=== PATIENT | male | born 1945 ===

== ENCOUNTER → 2018-12-17 | Outpatient (CLI) | payer MEDICARE ==
--- NOTE | 2018-12-17 16:06 | CTL ---
EXAMINATION TYPE: CT Low Dose Lung DATE OF EXAM ORDERED: 12/17/2018 HISTORY: 73-year-old male Personal history of tobacco use. Lung cancer screening CT DLP: [address] CTDI: 1.99 mGy Automated exposure control for dose reduction was used. SCREENING VISIT: Baseline COMPARISON: None TECHNIQUE: Low dose computed tomography scan was performed through the chest at 1 mm thick sections a nd reconstructed images coronal/sagittal plane. Additional coronal MIP reconstruction performed. CT DIAGNOSTIC QUALITY: Satisfactory FINDINGS: Heart normal size without pericardial effusion. Extensive coronary vessel calcifications are present. Ectatic ascending aorta 3.7 cm. Moderate atherosclerotic calcifications throughout the aorta. No thoracic lymphadenopathy by CT size criteria. 5 mm subpleural pulmonary nodule posterior right upper lobe, axial image 61. Probable scarring given the adjacent curvilinear density. 4 mm anterior left upper lobe pulmonary nodule axial image 103. Tiny calcified granuloma left lower lobe, axial image 185. Calcific granuloma left upper lobe, axial image 107. Moderate diffuse bronchial wall thickening. Visualized upper abdomen shows what appears to be 4.2 cm caudate lobe cyst. Bones: Moderate distention plate degenerative change mid to lower thoracic spine. IMPRESSION: 1. LungRADS 3 - probably benign; subpleural nodularity right upper lobe, possible pleural parenchymal scarring given adjacent curvilinear density. 2. Prior granulomatous disease and a couple scattered 5 mm and smaller pulmonary nodules at baseline. 3. COPD with a prominent component of chronic bronchitis versus superimposed acute bronchitis. 4. CAD. RECOMMENDATION: 1. Six-month follow-up low-dose CT chest. 2. Smoking cessation. FOLLOW UP CT CHEST RECOMMENDATION: [address] LUNG RAD: Lung-Rad 3 Probably Benign
== END | disposition home or self-care (01) ==
LOC: RADCTMAIN 07:55
PROVIDERS: ATTEND Internal Medicine
DX: Z12.2 Encounter for screening for malignant neoplasm of respiratory organs (principal); R91.8 Other nonspecific abnormal finding of lung field; J44.9 Chronic obstructive pulmonary disease, unspecified; I25.10 Atherosclerotic heart disease of native coronary artery without angina pectoris; F17.200 Nicotine dependence, unspecified, uncomplicated

== ENCOUNTER → 2019-01-07 | Outpatient (CLI) | payer MEDICARE ==
--- NOTE | 2019-01-07 11:25 | ECHOS ---
STRESS ECHOCARDIOGRAM INDICATIONS: Atherosclerotic calcification. MEDICATIONS: Rosuvastatin. BASELINE HEART RATE: 58 BASELINE BLOOD PRESSURE: 129/49 MAXIMUM HEART RATE: 123. MAXIMUM BLOOD PRESSURE: 213/92 85% MPHR: 125 100% MPHR: 147 METS: 6.8 MAXIMUM STAGE REACHED: 3 TOTAL EXERCISE TIME: 5:15 CLINICAL INFORMATION: Atherosclerotic calcifications noted on CT scan. Evaluate for coronary artery disease, longstanding history of smoking and COPD. Baseline heart rate 58 beats per minute. Baseline blood pressure 129/49 mmHg. Patient exercised on a Finn protocol for barely 5 minutes 15 seconds. He was extremely short of breath with exercise. There was a hypertensive response to exercise 213/92 mmHg. His baseline 12-lead ECG showed normal sinus rhythm and normal cardiac intervals without any PVCs. However, with exercise. He had very frequent PVCs over left bundle branch block morphology with upright QRS in the inferior leads consistent with the outflow tract PVCs. With exercise, he had ventricular bigeminy but no nonsustained ventricular tachycardia. However, there was no ECG evidence for ischemia. No sustained or nonsustained arrhythmias were noted. Only ventricular bigeminy throughout the study. The baseline 2D echo images showed normal LV size and systolic function without segmental wall motion abnormalities. At peak exercise, there was hypokinesis of the inferior wall that improved with recovery. IMPRESSION: 1. Hypertensive response to exercise. 2. Shortness of breath with exertion. 3. Hypokinesis of the inferior wall at peak exercise that improved with recovery. Outflow tract premature ventricular contractions are likely RVOT premature ventricular contractions that could be explained by ischemia in the inferior wall territory (conus branch). MMODL / IJN: [id number] /
== END | disposition home or self-care (01) ==
LOC: RADNMMAIN 09:37
PROVIDERS: ATTEND Internal Medicine
DX: I25.10 Atherosclerotic heart disease of native coronary artery without angina pectoris (principal); I70.0 Atherosclerosis of aorta
CPT/HCPCS: 93351

== ENCOUNTER → 2019-12-12 | Outpatient (CLI) | payer MEDICARE ==
--- NOTE | 2019-12-12 07:49 | US ---
EXAMINATION TYPE: US duplex aorta DATE OF EXAM: 12/12/2019 COMPARISON: NONE CLINICAL HISTORY: Z13.6 Encounter for screening for cardiovascular d; smoker; COPD EXAM MEASUREMENTS: Abdominal Aorta: Proximal: 2.7cm Transverse Mid: 2.1cm Longitudinal Distal: 2.2cm Transverse Bifurcation: Right CARMEN = 1.5cm Transverse; Left CARMEN = 1.6cm Transverse. Irregular intimal wall thickening noted throughout aorta and into common iliac arteries. Color flow p atency and Pulsed Doppler arterial waveform are documented. Grayscale, color Doppler, spectral Doppler imaging performed. Atheromatous changes are present. IMPRESSION: No evident aortic aneurysm.
== END | disposition home or self-care (01) ==
LOC: RADUSWWP 07:09
PROVIDERS: ATTEND Internal Medicine
DX: Z13.6 Encounter for screening for cardiovascular disorders (principal)
CPT/HCPCS: 93979

== ENCOUNTER → 2019-12-18 | Outpatient (CLI) | payer MEDICARE ==
--- NOTE | 2019-12-18 08:05 | CTL ---
EXAMINATION TYPE: CT Low Dose Lung DATE OF EXAM ORDERED: 12/18/2019 HISTORY: . Lung cancer screening CT DLP: 94.[address] CTDI: 2.7 mGy Automated exposure control for dose reduction was used. SCREENING VISIT: COMPARISON: 12/17/2018 TECHNIQUE: Low dose computed tomography scan was performed through the chest at 1 mm thick sections a nd reconstructed images in the coronal plane at [address] DIAGNOSTIC QUALITY: Satisfactory FINDINGS: LUNG NODULES: 1. Stable 5 mm subpleural pulmonary nodule right upper lobe posteriorly. 2. Stable calcified granuloma left lower lobe. 3. Stable calcified granuloma left upper lobe. 4. Stable 4 mm nodule anterior segment left upper lobe. 5. Stable 2 mm nodule right middle lobe axial image 94 6. Calcified 2 mm nodule superior segment right upper lobe LUNGS: There are diffuse emphysematous changes with peribronchial wall thickening which is stable. No consol idative pneumonia, pleural effusion, or pneumothorax. Areas of subsegmental consolidation most typica l scar or atelectasis PLEURAL SPACE: Effusion: None Calcification: None Thickening: Mild Pneumothorax: None HEART: Heart size at the upper limits of normal. No pericardial effusion. Dense three-vessel coronary artery disease. Atherosclerotic change aorta. OTHER FINDINGS: Suggestion of a granuloma within the spleen. Within the liver there is a hypodense lesion caudate seg ment measuring 3 cm and 14 Hounsfield units suggestive of a cyst retrospectively stable from prior ex am. IMPRESSION: Lung rad's 2 1. Stable 5 mm or less multiple pulmonary nodules. 2. Correlate for chronic granulomatous disease. 3. COPD with findings suggestive of chronic bronchitis FOLLOW UP CT CHEST RECOMMENDATION: Annual screening with 12 month follow-up CT CT LUNG RAD: 2
== END | disposition home or self-care (01) ==
LOC: RADCTMAIN 07:01
PROVIDERS: ATTEND Internal Medicine
DX: J44.9 Chronic obstructive pulmonary disease, unspecified (principal); F17.210 Nicotine dependence, cigarettes, uncomplicated

== ENCOUNTER → 2024-07-26 | Outpatient (CLI) | payer MEDICARE ==
--- NOTE | 2024-07-26 20:06 | PE ---
EXAMINATION TYPE: PET CT fusion skull to thigh DATE OF EXAM: 07/26/2024 CLINICAL INDICATION:Male, 79 years old with history of R91.1 SPN; TECHNIQUE: Following the intravenous administration of 13.28 mCi of F-18 FDG, whole body images are performed from the skull base to the Mid thigh. Images are reviewed on the computer in the coronal, axial, and sagittal planes. Reconstructed rotating images are created on independent workstation an d reviewed on the computer. A non-contrast CT is performed in conjunction with the PET scan. Glucos e level 98 mg/dL CT DLP: 707.97 mGycm, Automated exposure control for dose reduction was used. COMPARISON: CT 07/10/2024, PET/CT None, MRI: None FINDINGS: Mediastinal SUV mean is 2.5. Hepatic parenchyma SUV mean is 2.7. SKULL BASE AND NECK: No suspicious radiotracer activity. CHEST, MEDIASTINUM, AND HILAR REGION: * Left upper lobe peripheral 21 x 11 mm pulmonary nodule with max SUV 15.4. * Left paratracheal/AP window lymph node measuring 9 mm in short axis max SUV 16.4 ABDOMEN AND PELVIS: No suspicious radiotracer activity. MUSCULOSKELETAL STRUCTURES: No suspicious radiotracer activity. OTHER CT: Atherosclerosis of the carotid bifurcations and coronary arteries. The left kidney is surgi nitza absent. Mild emphysema changes. Musculoskeletal vasculature. Thin-walled cystic changes in the right lower lobe superior segment and lateral aspect of the right upper lobe. IMPRESSION: Left upper lobe peripheral pulmonary nodule with FDG activity compatible with malignancy. 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 [facility], , 07/26/2024 8:03 PM
== END | disposition home or self-care (01) ==
LOC: RADPETMAIN 06:47
PROVIDERS: ATTEND Internal Medicine Pulmonary Disease
DX: J43.9 Emphysema, unspecified (principal); R91.1 Solitary pulmonary nodule
CPT/HCPCS: 78815; A9552

== ENCOUNTER 2024-08-30 05:46 | Day surgery (SDC) | payer MEDICARE ==
[2024-08-30] MEDS ORDERED: ALPRAZolam 0.25 MG TAB PO PRN (05:51)
[2024-08-30] MEDS ORDERED: ATORVASTATIN 80 MG TAB PO STA (05:51)
[2024-08-30] MEDS ORDERED: ALPRAZolam 0.5 MG TAB PO PRN (05:51)
[2024-08-30] MEDS ORDERED: NITROGLYCERIN SL TABS 0.4 MG TAB SUBLINGUAL PRN (05:51)
[2024-08-30] MEDS: ASPIRIN 325 MG TAB PO STA (06:23)
[2024-08-30] MEDS: SODIUM CHLORIDE 0.9% 1,000 ML in EMPTY BAG 1 BAG IV SCH (06:24)
[2024-08-30 06:35] VITALS: RESP 16; TEMP 97.8
[2024-08-30] MEDS: IV FLUID CONTINUATION 1,000 ML IV ONE (06:35)
[2024-08-30] MEDS: HEPARIN SODIUM,PORCINE 10,000 UNIT in SODIUM CHLORIDE 0.9% 1,000 ML IRRIGATION PRN (07:28)
[2024-08-30] MEDS: HEPARIN SODIUM,PORCINE (1 ML) 2,500 UNIT in SODIUM CHLORIDE 0.9% 250 ML IRRIGATION PRN (07:29)
[2024-08-30] MEDS: fentaNYL (PF) 50 MCG/1 ML VIAL IVP ONE (07:43)
[2024-08-30] MEDS: MIDAZOLAM 2 MG/2 ML VIAL IVP ONE (07:49)
[2024-08-30] MEDS: LIDOCAINE 1% INJ 10MG/ML (20 ML MDV) SQ ONE (07:49)
[2024-08-30] MEDS: VERAPAMIL SYRINGE (5 MG/10 ML) INTRAARTER ONE (07:50)
[2024-08-30] MEDS: HEPARIN SODIUM 1,000 UN/ML (10ML VL) IV ONE (07:53)
[2024-08-30] MEDS: IOPAMIDOL-370 100ML BTL INJ ONE (08:00)
[2024-08-30] MEDS: SODIUM CHLORIDE 0.9% 1,000 ML IV SCH (08:15)
[2024-08-30] MEDS ORDERED: RX INFO: IV CONTRAST WAS GIVEN 1 EACH MISC MISCELLANE PRN (08:17)
--- NOTE | 2024-08-30 08:25 | P.CARDCATH ---
Date of Procedure: 08/30/24 Description of Procedure: Cardiac Catheterization: The patient is a 79-year-old male with a history of hypertension, hyperlipidemia, chronic tobacco use who has progressive dyspnea on exertion and had evidence of inducible ischemia involving the inferior and inferoapical wall. He was also found to have a lung lesion and is scheduled to undergo biopsy next week. Recommendations were made regarding cardiac catheterization, the risks and the complications were discussed with the patient who is in full un derstanding and agreement. Procedure Description: Patient was brought to corn lab technician in fasting semi-sedated state after receiving Fentanyl and Benadryl achieiving moderate conscious sedated state. Using Xylocaine Anesthesia and modified Seldinger technique, a 6-Danish sheath was introduced in the right radial artery . Subsequently, selective coronary angiography was performed using a 5-Danish 3.5 bend Mouna catheter. Multiple views of the coronary artery including hemiaxial views were obtained. The 5 Danish pigtail catheter was used to cross the aortic valve and LVEDP was calculated. Following that, catheter and sheath were removed. Hemostasis was obtained with deployment of vascular band . There was no immediate complication. Patient was returned to room in stable condition. Of note, the patient received a total of 4500 units of intravenous heparin as well as intra-arterial verapamil. Findings: Fluoroscopy: Severe calcification of all the coronary arteries was noted Left main: This is a large size vessel, bifurcating into LAD and left circumflex, left main has no obstructive disease LAD: This is a large size vessel, reaching to the apex, giving rise to 2 diagonal branch, the first 1 is proximal and large in caliber. The LAD and mid segment has mild disease of 20 to 30% with no high-grade stenosis Left circumflex: This is a large codominant vessel, giving rise to 2 obtuse marginal branch the first 1 is very proximal. Distally bifurcating into a small PDA and PLV, the left circumflex has mild intimal disease with no high-grade stenosis RCA: This is a codominant vessel bifurcating distally to PDA and PLV. The proximal RCA has a 90% stenosis. There is another 50 to 60% plaque in the midsegment, the rest of the vessel has no high-grade stenosis Left Ventriculogram: Not performed Hemodynamics: There was no gradient across the aortic valve, LVEDP was 14 -16 mmHg Conclusion: 1. Calcified coronary arteries 2. Severe disease in the proximal RCA 3. Mild disease in the LAD and left circumflex 4. Codominant system Recommendations: At this time we will continue medical therapy, the patient will undergo his biopsy as scheduled next week and depending on the findings the decision will be made regarding proceeding with PCI of the RCA with dual antiplatelet treatment. In the meantime we will continue aggressive coronary risks modifications and I have discussed with him the importance of smoking cessation. The findings and the recommendations were discussed with the patient and the family and they were in full understanding and agreement. Duration of sedation is 14 minutes.
[2024-08-30] MEDS ORDERED: NON FORMULARY DRUG (Losartan Potassium [Losartan Potassium] 100 MG Tablet) PO SCH (09:00)
[2024-08-30] MEDS ORDERED: NON FORMULARY DRUG (Rosuvastatin 20 MG Tablet) PO SCH (09:00)
[2024-08-30] MEDS ORDERED: NON FORMULARY DRUG (Ipratropium/Albuter 20-100mcg 120 PUFF Each) INHALATION SCH (09:00)
[2024-08-30] MEDS ORDERED: amLODIPine 5 MG TAB PO SCH (09:00)
[2024-08-30] MEDS ORDERED: buPROPion SR 150 MG TABLET.ER PO SCH (09:00)
[2024-08-30 14:19] VITALS: PULSE 56
[2024-08-30 14:21] VITALS: BP 141/62
== END 2024-08-30 12:43 | disposition home or self-care (01) ==
LOC: CATHCVL 05:46
PROVIDERS: ATTEND Internal Medicine Interventional Cardiology
DX: I25.10 Atherosclerotic heart disease of native coronary artery without angina pectoris (principal); I10 Essential (primary) hypertension; J44.9 Chronic obstructive pulmonary disease, unspecified; E78.2 Mixed hyperlipidemia; Z85.46 Personal history of malignant neoplasm of prostate; Z72.0 Tobacco use; Z79.02 Long term (current) use of antithrombotics/antiplatelets; Z79.899 Other long term (current) drug therapy
CPT/HCPCS: 93458; 99152; C1894; C1769; J2250; J1644 ×3; J2003; Q9967; J3010

== ENCOUNTER 2024-09-10 10:13 | Day surgery (SDC) | payer MEDICARE ==
[2024-09-06 15:07] VITALS: BMI 28.8
[~2024-09-10 10:13] MED LIST: ALPRAZolam 0.25 MG TAB PO PRN; ALPRAZolam 0.5 MG TAB PO PRN; NITROGLYCERIN SL TABS 0.4 MG TAB SUBLINGUAL PRN
[2024-09-10] MEDS: SODIUM CHLORIDE 0.9% 1,000 ML in EMPTY BAG 1 BAG IV SCH ×2 (10:49→14:45)
[2024-09-10] MEDS: ASPIRIN 325 MG TAB PO STA (10:50)
[2024-09-10] MEDS: IV FLUID CONTINUATION 1,000 ML IV ONE ×2 (10:55→13:20)
[2024-09-10 11:09] LABS: Basophils # (A) 0.04 10*3/uL (0.00-0.10); Basophils % (A) 0.5 %; Eosinophils % (A) 1.1 %; HCT 41.1 % (39.6-50.0); HGB 13.8 g/dL (13.0-17.0); Lymphocytes # (A) 2.28 10*3/uL (0.90-5.00); Lymphocytes % (A) 25.9 %; MCH 30.1 pg (27.0-32.0); MCHC 33.6 g/dL (32.0-37.0); MCV 89.7 fL (80.0-97.0); Mean Platelet Volume 9.7 fL (9.5-12.2); Monocytes # (A) 0.64 10*3/uL (0.20-1.00); Monocytes % (A) 7.3 %; Neutrophils # (A) 5.71 10*3/uL (1.80-7.70); Neutrophils % (A) 64.9 %; Platelet Count 269 10*3/uL (140-440); RBC 4.58 10*6/uL (4.40-5.60); RDW 13.7 % (11.5-14.5)
[2024-09-10 11:33] LABS: African American GFR (CKD) 50 (>60 ml/min/1.73 sqM); Anion Gap 8 mmol/L; Blood Urea Nitrogen 28 mg/dL (9-20); Carbon Dioxide 26 mmol/L (22-30); Chloride 103 mmol/L (98-107); Glucose 78 mg/dL (74-99); Non-African American GFR(CKD) 44 (>60 ml/min/1.73 sqM); Potassium 4.3 mmol/L (3.5-5.1); Sodium 137 mmol/L (137-145)
[2024-09-10] MEDS: fentaNYL (PF) 50 MCG/ML 2 ML AMP IVP ONE (12:06)
[2024-09-10] MEDS: LIDOCAINE 1% INJ 10MG/ML (20 ML MDV) SQ ONE (12:09)
[2024-09-10] MEDS: MIDAZOLAM 2 MG/2 ML VIAL IVP ONE (12:10)
[2024-09-10] MEDS: VERAPAMIL SYRINGE (5 MG/10 ML) INTRAARTER ONE (12:11)
[2024-09-10] MEDS: HEPARIN SODIUM 1,000 UN/ML (10ML VL) IVP ONE (12:13)
[2024-09-10] MEDS: HEPARIN SODIUM,PORCINE (1 ML) 2,500 UNIT in SODIUM CHLORIDE 0.9% 250 ML IRRIGATION PRN (12:14)
[2024-09-10] MEDS: HEPARIN SODIUM,PORCINE 10,000 UNIT in SODIUM CHLORIDE 0.9% 1,000 ML IRRIGATION PRN (12:14)
[2024-09-10] MEDS: IOPAMIDOL-300 100ML BTL INJ ONE ×2 (12:47→13:01)
[2024-09-10] MEDS: NITROGLYCERIN 1000MCG/10ML SYRINGE INTRACORON ONE (12:56)
[2024-09-10] MEDS: SODIUM CHLORIDE 0.9% 1,000 ML IV ONE (13:02)
[2024-09-10] MEDS ORDERED: ATROPINE SULFATE 0.1 MG/ML 10ML SYRINGE IV PRN (13:17)
[2024-09-10] MEDS ORDERED: NITROGLYCERIN SL TABS 0.4 MG TAB SUBLINGUAL PRN (13:17)
[2024-09-10] MEDS ORDERED: RX INFO: IV CONTRAST WAS GIVEN 1 EACH MISC MISCELLANE PRN (13:17)
[2024-09-10] MEDS ORDERED: MAG HYDROX/AL HYDROX/SIMETH 30 ML CUP PO PRN (13:17)
--- NOTE | 2024-09-10 13:24 | P.CARDCATH ---
Date of Procedure: 09/10/24 Description of Procedure: PERCUTANEOUS TRANSLUMINAL CORONARY ANGIOPLASTY CLINICAL INFORMATION: The patient is a 79-year-old male with history of hypertension, hyperlipidemia, recently diagnosed with lung CA and had an abnormal MPI with subsequent coronary angiography that revealed heavily calcified coronary arteries with 99% stenosis in the proximal RCA. The patient continues to have dyspnea on exertion in view of the possible upcoming intervention on his lung cancer further cardiac interventions were recommended.. Recommendations were made regarding angioplasty and stenting. The procedure as well as the risks and the complications were discussed with the patient who was in full understanding and agreement. PROCEDURE: The patient was brought to the Conservation Biology Professor in the fasting semisedated state after receiving fentanyl and Benadryl, using modified Seldinger technique a 6 [place] sheath was introduced in the right radial artery. A 6 [place] 0.75 guiding catheter was introduced into the system. After cannulating the right coronary ostium, a 0.014 BMW J-wire was advanced across the lesion and positioned distally. Following that a 2.5 x 12 mm trek balloon was advanced and inflated at 14 atmosphere. The lesion did not open completely and subsequently a 2.75 x 12 mm [place] trek balloon was advanced and 2 inflations at 12 zahraa were done. Subsequently a [employer] [place] eye IVUS catheter was advanced, it was unsuccessful in crossing the lesion completely but revealed severe calcification with more than 270 degree calcifications with the proximal lumen measuring up to 4 mm in diameter. After moving the catheter a 3.5 x 12 mm lithotripsy shockwave balloon was advanced and 5 treatments were done. Repeat IVUS imaging was performed and revealed improvement in the lumen. Following that a 4.0 x 18 mm Xience jeremias point stent was deployed. It was dilated at 16 zahraa. After removing the balloon a 4.0 x 12 mm Xience jeremias point stent was deployed distal to the first 1 at 14 zahraa and an inflation in the overlap segment at 16 zahraa was done. Repeat IVUS imaging was performed and revealed mild under deployment in the proximal segment of the stent. A 4.0 x 12 mm NC trek balloon was advanced and multiple inflation at 12 zahraa were done. After the last inflation, after appropriate wait, the balloon and the guidewire were withdrawn back into the guiding catheter. Images were obtained and repeated. Those images reveal stable successful stenting. At that point, the guiding catheter, the balloon, and guidewire were removed. The sheath was removed. Hemostasis was obtained with deployment of a TR band. There were no immediate complications. The patient was returned to the room in stable condition. Of note, the patient received 6500 units of heparin as well as continued on Plavix. His ACT was followed. There was no immediate complications. He had chest discomfort that resolved at the end of the procedure. He had no EKG changes. RESULTS: Successful stenting of the proximal heavily calcified RCA with reduction of stenosis from 99% to less than 5% with IVUS imaging and PEPE-3 flow, there was moderate disease in the midsegment that was felt to be best treated medically. RECOMMENDATIONS: The patient will continue on aspirin and clopidogrel with no interruption for 6 months in addition to aggressive coronary risks modification, maintaining LDL below 70 mg/dL. The findings and recommendations were discussed with the patient and the family, they are in full understanding and agreement. Duration of sedation: 51 minutes
[2024-09-10] MEDS: IPRATROPIUM-ALBUTEROL 3 ML NEB INHALATION SCH (15:51)
[2024-09-10] MEDS ORDERED: ZOLPIDEM 5 MG TAB PO PRN (21:00)
[2024-09-11 07:08] LABS: African American GFR (CKD) 77 (>60 ml/min/1.73 sqM); Anion Gap 4 mmol/L; Blood Urea Nitrogen 21 mg/dL (9-20); Calcium 9.6 mg/dL (8.4-10.2); Carbon Dioxide 24 mmol/L (22-30); Chloride 110 mmol/L (98-107); Glucose 86 mg/dL (74-99); Non-African American GFR(CKD) 66 (>60 ml/min/1.73 sqM); Potassium 4.2 mmol/L (3.5-5.1); Sodium 138 mmol/L (137-145)
--- NOTE | 2024-09-11 07:34 | P.PN ---
Subjective Progress Note Date: 09/11/24 PROGRESS NOTE The patient is a 79-year-old male with a history of hypertension, hyperlipidemia who has been complaining of progressive dyspnea on exertion and had an abnormal MPI. He underwent coronary angiography that showed severe obstructive disease involving the proximal calcified RCA. Subsequently the patient underwent biopsy of his lung that revealed evidence of malignancy and is undergoing further evaluation. Because of his anatomy and his symptoms recommendation were made regarding coronary angioplasty and stenting. He underwent stenting of the RCA yesterday. He is feeling relatively stable this morning, continues to have mild dyspnea but no chest discomfort, no dizziness or palpitations. He continues to be in sinus mechanism. Medications: Aspirin, atorvastatin 40 mg daily, Wellbutrin, clopidogrel 75 mg daily, losartan 100 mg daily, DuoNeb PHYSICAL EXAMINATION: Blood pressure 129/60 heart rate 68 LUNGS: Mild expiratory wheezes HEART: Regular rate and rhythm, S1, S2. No S3. No systolic murmur ABDOMEN: Soft, nontender, no organomegaly EXTREMETIES: No edema, right radial pulse intact LAB: Potassium 4.2, BUN 21, creatinine 1.07. EKG sinus mechanism with no acute ST segment changes IMPRESSION: 1. Status post stenting of the proximal calcified RCA, the patient received 2 stents with IVUS imaging 2. History of lung cancer, recently diagnosed, workup in progress 3. History of hypertension 4. History of hyperlipidemia PLAN: 1. Continue present therapy 2. Continue dual antiplatelet treatment for 6 months 3. Increase physical activity 4. Discharge home today and follow-up in 1 week Objective - Vital Signs Vital signs: Vital Signs Temp 98.3 F 09/11/24 04:11 Pulse 68 09/11/24 04:11 Resp 19 09/11/24 04:11 BP 129/65 09/11/24 04:11 Pulse Ox 96 09/11/24 04:11 FiO2 Intake & Output 09/10/24 09/11/24 09/11/24 18:59 06:59 18:59 Intake Total 1240 24 Balance 1240 24 Weight 90.1 kg Intake: IV 1000 Oral 240 24 Other: # Voids 1 1 - Labs CBC & Chem 7: 09/10/24 10:45 09/11/24 06:12 Labs: Abnormal Lab Results - Last 24 Hours (Table) 09/10/24 09/11/24 Range/Units 10:45 06:12 Chloride 110 H (98-107) mmol/L BUN 28 H 21 H (9-20) mg/dL Creatinine 1.51 H (0.66-1.25) mg/dL
[2024-09-11 07:36] VITALS: BP 138/64; RESP 17; TEMP 98
[2024-09-11] MEDS: ATORVASTATIN 40 MG TAB PO SCH (08:44)
[2024-09-11] MEDS: buPROPion SR 150 MG TABLET.ER PO SCH (08:44)
[2024-09-11] MEDS: amLODIPine 5 MG TAB PO SCH (08:44)
[2024-09-11] MEDS: ASPIRIN 81 MG PO SCH (08:44)
[2024-09-11] MEDS: CLOPIDOGREL 75 MG TAB PO SCH (08:45)
[2024-09-11] MEDS: LOSARTAN 50 MG TAB PO SCH (08:45)
[2024-09-11 08:51] VITALS: PULSE 69
== END 2024-09-11 09:04 | disposition home or self-care (01) ==
LOC: CATHCVL 10:13 → 6NMEDSUR 13:00 → CATHCVL 09-11 09:04
PROVIDERS: ATTEND Internal Medicine Interventional Cardiology
DX: I25.10 Atherosclerotic heart disease of native coronary artery without angina pectoris (principal); E78.5 Hyperlipidemia, unspecified; I10 Essential (primary) hypertension; J44.9 Chronic obstructive pulmonary disease, unspecified; Z87.891 Personal history of nicotine dependence; Z79.82 Long term (current) use of aspirin; Z79.02 Long term (current) use of antithrombotics/antiplatelets; Z95.5 Presence of coronary angioplasty implant and graft
CPT/HCPCS: 94640 ×2; 94760; 92978; 92972; 80048 ×2; 85025; C9600; C1769 ×2; C1894; C1725 ×3; C1753; C1874; C1761; J2250; J1644 ×3; J2003; J3010; Q9967; J2305

== ENCOUNTER 2024-12-04 15:40 | Observation (INO) | payer MEDICARE ==
[2024-12-04 17:05] LABS: Basophils # (A) 0.01 10*3/uL (0.00-0.10); Basophils % (A) 0.1 %; Eosinophils # (A) 0.00 10*3/uL (0.04-0.35); Eosinophils % (A) 0.0 %; HCT 38.3 % (39.6-50.0); HGB 13.0 g/dL (13.0-17.0); Lymphocytes # (A) 0.57 10*3/uL (0.90-5.00); Lymphocytes % (A) 6.6 %; MCH 30.6 pg (27.0-32.0); MCHC 33.9 g/dL (32.0-37.0); MCV 90.1 fL (80.0-97.0); Monocytes # (A) 0.89 10*3/uL (0.20-1.00); Monocytes % (A) 10.2 %; Neutrophils # (A) 7.21 10*3/uL (1.80-7.70); Neutrophils % (A) 82.9 %; Platelet Count 210 10*3/uL (140-440); RBC 4.25 10*6/uL (4.40-5.60); RDW 13.6 % (11.5-14.5); WBC 8.70 10*3/uL (4.50-10.00)
[2024-12-04 17:14] LABS: INR 1.0 (<1.2); Partial Thromboplastin Time 22.4 sec (22.0-30.0); Prothrombin Time 10.8 sec (10.0-12.5)
[2024-12-04 17:16] LABS: ALT 47 U/L (4-49); AST 47 U/L (17-59); African American GFR (CKD) 56 (>60 ml/min/1.73 sqM); Albumin 4.2 g/dL (3.5-5.0); Alkaline Phosphatase 96 U/L (38-126); Anion Gap 11 mmol/L; Blood Urea Nitrogen 45 mg/dL (9-20); Calcium 9.7 mg/dL (8.4-10.2); Carbon Dioxide 21 mmol/L (22-30); Chloride 109 mmol/L (98-107); Glucose 119 mg/dL (74-99); Magnesium 2.4 mg/dL (1.6-2.3); Non-African American GFR(CKD) 48 (>60 ml/min/1.73 sqM); Potassium 4.9 mmol/L (3.5-5.1); Sodium 141 mmol/L (137-145); Total Protein 6.7 g/dL (6.3-8.2)
[2024-12-04 17:25] LABS: NT-Pro-B-Type Natriuretic Pept 396 pg/mL
--- NOTE | 2024-12-04 17:27 | ED ---
General Adult HPI - General Chief complaint: Shortness of Breath Stated complaint: difficulty breathing Time Seen by Provider: 12/04/24 16:26 Source: patient, family, RN notes reviewed Mode of arrival: ambulatory Limitations: no limitations - History of Present Illness Initial comments: 79-year-old male with history of COPD and adenocarcinoma on infusion therapy with oncology out of [facility] presenting to the emergency department with his for complaints of difficulty breathing and worsening productive cough over the past few days. Patient states that he has been feeling weak and having creasing dyspnea on exertion. states that over the past few days he has had a decrease in appetite and has been sleeping more than normal. Patient also reports low-grade fever and episode of vomiting while in the waiting room. States that he saw his PCP yesterday where he started steroids. - Related Data Home Medications Medication Instructions Recorded Confirmed Losartan Potassium 100 mg PO DAILY 08/14/24 12/04/24 Rosuvastatin [Crestor] 20 mg PO DAILY 08/14/24 12/04/24 amLODIPine [Norvasc] 5 mg PO DAILY 08/14/24 12/04/24 Albuterol Sulfate [Albuterol 2 puff INHALATION RT-Q4H PRN 08/28/24 12/04/24 Sulfate Hfa] Varenicline [Chantix Continuing 1 mg PO DAILY 08/30/24 12/04/24 Pack] Clopidogrel [Plavix] 75 mg PO DAILY 09/10/24 12/04/24 Ascorbic Acid [Vitamin C] 1,000 mg PO DAILY 12/04/24 12/04/24 Baclofen [Lioresal] 10 mg PO HS 12/04/24 12/04/24 Budesonide [Pulmicort] 0.5 mg INHALATION RT-BID 12/04/24 12/04/24 Cholecalciferol [Vitamin D3 (25 25 mcg PO DAILY 12/04/24 12/04/24 Mcg = 1000 Iu)] Ipratropium-Albuterol Nebulize 3 ml INHALATION RT-QID 12/04/24 12/04/24 [Duoneb 0.5 mg-3 mg/3 ml Soln] [place]-3/Dha/Epa/Fish Oil [[place]-3 1 cap PO DAILY 12/04/24 12/04/24 Fish Oil 1,000 mg Sfgl] buPROPion XL [Wellbutrin XL] 150 mg PO DAILY 12/04/24 12/04/24 guaiFENesin [Mucinex] 1,200 mg PO BID 12/04/24 12/04/24 methylPREDNISolone Dose Pack See Taper PO DIRECTED 12/04/24 12/04/24 [Medrol Dose Pack] Previous Rx's Medication Instructions Recorded Aspirin [[place] Aspirin EC] 81 mg PO DAILY #30 tab 08/30/24 Allergies Allergy/AdvReac Type Severity Reaction Status Date / Time No Known Allergies Allergy Verified 12/04/24 18:48 Review of Systems ROS Statement: Those systems with pertinent positive or pertinent negative responses have been documented in the HPI. ROS Other: All systems not noted in ROS Statement are negative. 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 only has one kidney since . History of Any Multi-Drug Resistant Organisms: None Reported Past Surgical History: Heart Catheterization, Tonsillectomy Additional Past Surgical History / Comment(s): prostate removed. left middle and ring finger amputated up to first knuckle. BRONCHOSCOPY, COLONOSCOPY Past Anesthesia/Blood Transfusion Reactions: No Reported Reaction Past Psychological History: No Psychological Hx Reported Smoking Status: Current some day smoker Past Alcohol Use History: None Reported Past Drug Use History: None Reported - Past Family History Father Family Medical History: Cancer, Coronary Artery Disease (CAD) Mother Family Medical History: Cancer General Exam Limitations: no limitations Eye exam: Present: normal appearance, PERRL, EOMI. Absent: scleral icterus, conjunctival injection, periorbital swelling Neck exam: Present: normal inspection. Absent: tenderness, meningismus, lymphadenopathy Respiratory exam: Present: wheezes, decreased breath sounds. Absent: normal lung sounds bilaterally, respiratory distress Cardiovascular Exam: Present: regular rate, normal rhythm, normal heart sounds. Absent: systolic murmur, diastolic murmur, rubs, gallop, clicks GI/Abdominal exam: Present: soft, normal bowel sounds. Absent: distended, tenderness, guarding, rebound, rigid Extremities exam: Present: normal inspection, full ROM, normal capillary refill. Absent: tenderness, pedal edema, joint swelling, calf tenderness Back exam: Present: normal inspection Course Vital Signs 07/02/2012/04/24 12/04/24 16:18 16:35 17:58 Temperature 98.1 F Pulse Rate 83 80 84 Respiratory 22 18 Rate Blood Pressure 132/67 150/73 O2 Sat by Pulse 95 97 Oximetry 12/04/24 12/04/24 18:10 21:48 Temperature Pulse Rate 86 85 Respiratory 21 Rate Blood Pressure 101/71 O2 Sat by Pulse 95 Oximetry Medical Decision Making - Medical Decision Making Was pt. sent in by a medical professional or institution (, PA, DISH UP PERSON, urgent care, hospital, or long term...) When possible be specific @ -No Did you speak to anyone other than the patient for history (EMS, parent, family, police, friend...)? What history was obtained from this source @ -No Did you review nursing and triage notes (agree or disagree)? Why? @ -I reviewed and agree with nursing and triage notes Were old charts reviewed (outside hosp., previous admission, EMS record, old EKG, old radiological studies, urgent care reports/EKG's, long term records)? Report findings @ -No old charts were reviewed Differential Diagnosis (chest pain, altered mental status, abdominal pain women, abdominal pain men, vaginal bleeding, weakness, fever, dyspnea, syncope, headache, dizziness, GI bleed, back pain, seizure, CVA, palpatations, mental health, musculoskeletal)? @ -Differential Dyspnea: Coronary syndrome, arrhythmia, tamponade, asthma, COPD, pulmonary embolism, pneumonia, pneumothorax, pulmonary effusion, anaphylaxis, diabetic ketoacidosis, flailed chest, pulmonary contusion, diaphragmatic rupture, anemia, neuromuscular , this is not meant to be an all-inclusive list. EKG interpreted by me (3pts min.). @ -Completed at 1730 sinus rhythm with a ventricular rate of 82, OH interval 170, QRS 101, QT 374, QTc 413. X-rays interpreted by me (1pt min.). @ -Chest x-ray reveals COPD changes with no acute cardiopulmonary process CT interpreted by me (1pt min.). @ -None done U/S interpreted by me (1pt. min.). @ -None done What testing was considered but not performed or refused? (CT, X-rays, U/S, lab s)? Why? @ -None What meds were considered but not given or refused? Why? @ -None Did you discuss the management of the patient with other professionals (professionals i.e. DrPayam, PA, DISH UP PERSON, lab, RT, psych nurse, social sciences instructor, commission for the blind director, teacher, control officer, special education case manager)? Give summary @ -I spoke with Dr. Mccrary was agreed with the patient for COPD exacerbation. Was smoking cessation discussed for >3mins.? @ -No Was critical care preformed (if so, how long)? @ -No Were there social determinants of health that impacted care today? How? (Homelessness, low income, unemployed, alcoholism, drug addiction, transportation, low edu. Level, literacy, decrease access to med. care, care home, rehab)? @ -No Was there de-escalation of care discussed even if they declined (Discuss DNR or withdrawal of care, Hospice)? DNR status @ -No What co-morbidities impacted this encounter? (DM, HTN, Smoking, COPD, CAD, C ancer, CVA, ARF, Chemo, Hep., AIDS, mental health diagnosis, sleep apnea, morbid obesity)? @ -COPD, lung cancer Was patient admitted / discharged? Hospital course, mention meds given and route, prescriptions, significant lab abnormalities, going to OR and other pertinent info. @ -Admitted. 79-year-old male presenting to the emergency department for complaints of difficulty in breathing. Patient is in no signs respiratory distress on my evaluation. There is noted bilateral decreased breath sounds with wheezes and ambulation sounds bilaterally. Patient provided with dose of steroids and a DuoNeb breathing treatment. Chest x-ray reveals no signs of focal consolidation or pneumonia. CBC is unremarkable. Patient noted to have mild YASMINE with a BUN of 45 and creatinine of 1.38. Viral testing is negative. Patient will be admitted for observation with continued breathing treatments and steroids for COPD exacerbation. Patient will be admitted to Dr. Mccrary. Pulmonology consult orders placed as well. Case discussed with my attending Dr. Dong. Undiagnosed new problem with uncertain prognosis? @ -No Drug Therapy requiring intensive monitoring for toxicity (Heparin, Nitro, Insulin, Cardizem)? @ -No Were any procedures done? @ -No Diagnosis/symptom? @ -COPD exacerbation Acute, or Chronic, or Acute on Chronic? @ -Acute Uncomplicated (without systemic symptoms) or Complicated (systemic symptoms)? @ -Complicated Side effects of treatment? @ -No Exacerbation, Progression, or Severe Exacerbation? @ -No Poses a threat to life or bodily function? How? (Chest pain, [place], [place], pneumonia, PE, COPD, DKA, ARF, appy, cholecystitis, CVA, Diverticulitis, Homicidal, Suic idal, threat to staff... and all critical care pts) @ -No - Lab Data Result diagrams: 12/04/24 16:52 12/04/24 16:52 Lab Results 12/04/24 12/04/24 12/04/24 Range/Units 16:52 16:52 16:52 WBC 8.70 (4.50-10.00) 10*3/uL RBC 4.25 L (4.40-5.60) 10*6/uL Hgb 13.0 (13.0-17.0) g/dL Hct 38.3 L (39.6-50.0) % MCV 90.1 (80.0-97.0) fL MCH 30.6 (27.0-32.0) pg MCHC 33.9 (32.0-37.0) g/dL Plt Count 210 (140-440) 10*3/uL MPV 10.1 (9.5-12.2) fL Immature Gran % (Auto) 0.2 % Neutrophils % 82.9 % Lymphocytes % 6.6 % Monocytes % 10.2 % Eosinophils % 0.0 % Basophils % 0.1 % Immature Gran # 0.02 (0.00-0.04) 10*3/uL Neutrophils # 7.21 (1.80-7.70) 10*3/uL Lymphocytes # 0.57 L (0.90-5.00) 10*3/uL Monocytes # 0.89 (0.20-1.00) 10*3/uL Eosinophils # 0.00 L (0.04-0.35) 10*3/uL Basophils # 0.01 (0.00-0.10) 10*3/uL PT 10.8 (10.0-12.5) sec INR 1.0 (<1.2) APTT 22.4 (22.0-30.0) sec Sodium 141 (137-145) mmol/L Potassium 4.9 (3.5-5.1) mmol/L Chloride 109 H (98-107) mmol/L Carbon Dioxide 21 L (22-30) mmol/L Anion Gap 11 mmol/L BUN 45 H (9-20) mg/dL Creatinine 1.38 H (0.66-1.25) mg/dL Est GFR (CKD-EPI)AfAm 56 (>60 ml/min/1.73 sqM) Est GFR (CKD-EPI)NonAf 48 (>60 ml/min/1.73 sqM) Glucose 119 H (74-99) mg/dL Plasma Lactic Acid Chad (0.7-2.0) mmol/L Calcium 9.7 (8.4-10.2) mg/dL Magnesium 2.4 H (1.6-2.3) mg/dL Total Bilirubin 0.6 (0.2-1.3) mg/dL AST 47 (17-59) U/L ALT 47 (4-49) U/L Alkaline Phosphatase 96 (38-126) U/L Troponin I (0.000-0.034) ng/mL NT-Pro-B Natriuret Pep 396 pg/mL Total Protein 6.7 (6.3-8.2) g/dL Albumin 4.2 (3.5-5.0) g/dL Influenza Type A (PCR) (Not Detectd) Influenza Type B (PCR) (Not Detectd) RSV (PCR) (Not Detectd) SARS-CoV-2 (PCR) (Not Detectd) 12/04/24 12/04/24 12/04/24 Range/Units 16:52 16:52 16:52 WBC (4.50-10.00) 10*3/uL RBC (4.40-5.60) 10*6/uL Hgb (13.0-17.0) g/dL Hct (39.6-50.0) % MCV (80.0-97.0) fL MCH (27.0-32.0) pg MCHC (32.0-37.0) g/dL Plt Count (140-440) 10*3/uL MPV (9.5-12.2) fL Immature Gran % (Auto) % Neutrophils % % Lymphocytes % % Monocytes % % Eosinophils % % Basophils % % Immature Gran # (0.00-0.04) 10*3/uL Neutrophils # (1.80-7.70) 10*3/uL Lymphocytes # (0.90-5.00) 10*3/uL Monocytes # (0.20-1.00) 10*3/uL Eosinophils # (0.04-0.35) 10*3/uL Basophils # (0.00-0.10) 10*3/uL PT (10.0-12.5) sec INR (<1.2) APTT (22.0-30.0) sec Sodium (137-145) mmol/L Potassium (3.5-5.1) mmol/L Chloride (98-107) mmol/L Carbon Dioxide (22-30) mmol/L Anion Gap mmol/L BUN (9-20) mg/dL Creatinine (0.66-1.25) mg/dL Est GFR (CKD-EPI)AfAm (>60 ml/min/1.73 sqM) Est GFR (CKD-EPI)NonAf (>60 ml/min/1.73 sqM) Glucose (74-99) mg/dL Plasma Lactic Acid Chad 1.1 (0.7-2.0) mmol/L Calcium (8.4-10.2) mg/dL Magnesium (1.6-2.3) mg/dL Total Bilirubin (0.2-1.3) mg/dL AST (17-59) U/L ALT (4-49) U/L Alkaline Phosphatase (38-126) U/L Troponin I <0.012 (0.000-0.034) ng/mL NT-Pro-B Natriuret Pep pg/mL Total Protein (6.3-8.2) g/dL Albumin (3.5-5.0) g/dL Influenza Type A (PCR) Not Detected (Not Detectd) Influenza Type B (PCR) Not Detected (Not Detectd) RSV (PCR) Not Detected (Not Detectd) SARS-CoV-2 (PCR) Not Detected (Not Detectd) Disposition Clinical Impression: COPD exacerbation Disposition: [facility] Condition: Stable Decision to Admit Reason: Admit from EC Decision Date: 12/04/24
--- NOTE | 2024-12-04 17:31 | XR ---
EXAMINATION TYPE: XR chest 2V DATE OF EXAM: 12/04/2024 5:09 PM COMPARISON: Chest radiographs from 07/10/2024. CLINICAL INDICATION: Male, 79 years old with history of DONNA; [facility] TECHNIQUE: XR chest 2V Frontal and lateral views of the chest. FINDINGS: Lungs/Pleura: There is flattening of the diaphragm with increased lucency of the lungs. No evidence o f pneumothorax, pleural effusion or focal consolidation. Prior left upper lobe lateral pulmonary nodu les not as well appreciated on today's exam. Pulmonary vascularity: Unremarkable. Heart/mediastinum: Cardiomediastinal silhouette is unremarkable. Musculoskeletal: No acute osseous pathology. Other findings: None IMPRESSION: 1. No acute cardiopulmonary disease process. 2. COPD changes. [facility], , 12/04/2024 5:29 PM
[2024-12-04 17:43] LABS: RSV Not Detected (Not Detectd)
[2024-12-04] MEDS: methylPREDNISolone SOD SUCCI 125 MG/2 ML VIAL IV STA (17:46)
[2024-12-04] MEDS: IPRATROPIUM-ALBUTEROL 3 ML NEB INHALATION STA (17:57)
[2024-12-04] MEDS ORDERED: ACETAMINOPHEN TAB 325 MG TAB PO PRN (18:20)
[2024-12-04] MEDS ORDERED: NALOXONE 0.4 MG/ML 1 ML VIAL IV PRN (18:20)
[2024-12-04] MEDS: ONDANSETRON 4 MG/2 ML VIAL IVP STA (18:20)
[2024-12-04] MEDS: ONDANSETRON 4 MG/2 ML VIAL IVP PRN (23:16)
[2024-12-05] MEDS: IPRATROPIUM-ALBUTEROL 3 ML NEB INHALATION SCH (01:12)
--- NOTE | 2024-12-05 02:11 | P.CNPUL ---
History of Present Illness Consult date: 12/05/24 Requesting physician: Deepti Irving Reason for consult: COPD Chief complaint: Shortness of breath History of present illness: Patient is a 79-year-old male with past medical history significant for COPD. Longtime tobacco smoker over 60 pack years, quitting in January 2024. He was recently diagnosed with lung cancer. Has received 2 rounds of Libtayo. PET scan available from June 2024 showing left upper lobe peripheral pulmonary nodule measuring 21 x 11 mm with an SUV value of 15.4 as well as left paratracheal lymph node measuring 9 mm with SUV value of 16.4. He is following with an oncologist at [facility], Dr. Layo Paredes. He pulmonolgist was previously Dr. JERMAIN Palacios, but has new patient visit with Dr. Liriano later this month. His primary care provider is Dr. Mccrary. 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 Presents the emergency department yesterday afternoon complaining of increased work of breathing. Productive cough with green sputum. Increasingly fatigued. Low-grade fevers. Did see his primary care provider 2 days ago and was given steroids. Workup in the emergency department including a chest x-ray which does not show any acute cardiopulmonary process. Hyperinflation and COPD like changes. CBC unremarkable for leukocytosis. Hemoglobin 13. Platelets 210. CMP: Sodium 141, potassium 4.9, chloride 109, serum bicarb 21, BUN 45, creatinine 1.38, glucose 119. Lactic 1.1. Magnesium 2.4. LFTs unremarkable. Troponin less than 0.012. NT proBNP 396. Viral 4 Plex negative for influenza A/B, RSV, COVID. Patient is currently being seen in the emergency department, he is on 2 L of supplemental oxygen. He states he does not wear oxygen on a routine basis. He is not in any respiratory distress. Congested cough. Denies sick contacts. Denies any rhinorrhea, sore throat, sinus congestion. Denies any hemoptysis. Denies any chest pain. Denies any heart palpitations, syncope or any syncopal events. No lower extremity edema. Reduced appetite and 1 episode of vomiting while in the emergency department waiting room. No diarrhea. No abdominal pain. Currently afebrile. Previously, loaded with IV Solu-Medrol and given DuoNeb treatment in the emergency department. Review of Systems Constitutional: Reports chills, Reports fatigue, Reports fever, Reports poor appetite, Denies sweats, Denies weight gain, Denies weight loss Ears, nose, mouth and throat: Denies headache, Denies nasal congestion, Denies nasal discharge, Denies post-nasal drip, Denies sinus pain, Denies sinus pressure, Denies sore throat, Denies voice changes Cardiovascular: Reports dyspnea on exertion, Denies chest pain, Denies lightheadedness, Denies orthopnea, Denies palpitations, Denies paroxysmal nocturnal dyspnea, Denies syncope Respiratory: Reports congestion, Reports cough with sputum, Reports dyspnea, Reports wheezing, Denies hemoptysis, Denies home oxygen, Denies pain on inspiration Gastrointestinal: Reports nausea, Reports vomiting, Denies abdominal pain, Denies diarrhea, Denies hematemesis Genitourinary: Denies dysuria, Denies flank pain, Denies hematuria, Denies urinary frequency Musculoskeletal: Denies limitation of motion Integumentary: Denies rash Neurological: Denies confusion, Denies head injury, Denies numbness, Denies paralysis, Denies paresthesias, Denies seizures, Denies syncope, Denies visual changes Psychiatric: Denies anxiety, Denies depression Past Medical History Past Medical History: Asthma, Cancer, COPD, Hyperlipidemia, Hypertension, Renal Disease Additional Past Medical History / Comment(s): varicose veins, hx prostate cancer, ring finger and middle finger left hand CA. only has one kidney since . History of Any Multi-Drug Resistant Organisms: None Reported Past Surgical History: Heart Catheterization, Tonsillectomy Additional Past Surgical History / Comment(s): prostate removed. left middle and ring finger amputated up to first knuckle. BRONCHOSCOPY, COLONOSCOPY Past Anesthesia/Blood Transfusion Reactions: No Reported Reaction Past Psychological History: No Psychological Hx Reported Smoking Status: Current some day smoker Past Alcohol Use History: None Reported Past Drug Use History: None Reported - Past Family History Father Family Medical History: Cancer, Coronary Artery Disease (CAD) Mother Family Medical History: Cancer Medications and Allergies Home Medications Medication Instructions Recorded Confirmed Type Losartan Potassium 100 mg PO DAILY 08/14/24 12/04/24 History Rosuvastatin [Crestor] 20 mg PO DAILY 08/14/24 12/04/24 History amLODIPine [Norvasc] 5 mg PO DAILY 08/14/24 12/04/24 History Albuterol Sulfate [Albuterol 2 puff INHALATION RT-Q4H PRN 08/28/24 12/04/24 History Sulfate Hfa] Aspirin [[place] Aspirin EC] 81 mg PO DAILY #30 tab 08/30/24 12/04/24 Rx Varenicline [Chantix Continuing 1 mg PO DAILY 08/30/24 12/04/24 History Pack] Clopidogrel [Plavix] 75 mg PO DAILY 09/10/24 12/04/24 History Ascorbic Acid [Vitamin C] 1,000 mg PO DAILY 12/04/24 12/04/24 History Baclofen [Lioresal] 10 mg PO HS 12/04/24 12/04/24 History Budesonide [Pulmicort] 0.5 mg INHALATION RT-BID 12/04/24 12/04/24 History Cholecalciferol [Vitamin D3 (25 25 mcg PO DAILY 12/04/24 12/04/24 History Mcg = 1000 Iu)] Ipratropium-Albuterol Nebulize 3 ml INHALATION RT-QID 12/04/24 12/04/24 History [Duoneb 0.5 mg-3 mg/3 ml Soln] [place]-3/Dha/Epa/Fish Oil [[place]-3 1 cap PO DAILY 12/04/24 12/04/24 History Fish Oil 1,000 mg Sfgl] buPROPion XL [Wellbutrin XL] 150 mg PO DAILY 12/04/24 12/04/24 History guaiFENesin [Mucinex] 1,200 mg PO BID 12/04/24 12/04/24 History methylPREDNISolone Dose Pack See Taper PO DIRECTED 12/04/24 12/04/24 History [Medrol Dose Pack] Allergies Allergy/AdvReac Type Severity Reaction Status Date / Time No Known Allergies Allergy Verified 12/04/24 18:48 Physical Exam Vitals: Vital Signs Temp Pulse Resp BP Pulse Ox 12/05/24 01:18 85 20 12/05/24 01:12 85 22 12/04/24 21:48 85 21 101/71 95 12/04/24 18:10 86 12/04/24 17:58 84 12/04/24 16:35 80 18 150/73 97 12/04/24 16:18 98.1 F 83 22 132/67 95 Intake and Output 12/04/24 12/04/24 12/05/24 14:59 22:59 06:59 Other: Weight 89.358 kg GENERAL EXAM: Alert, 79-year-old well-nourished male, comfortable in no apparent distress. HEAD: Normocephalic and atraumatic EYES: Normal reaction of pupils, equal size. NOSE: Clear with pink turbinates. THROAT: No erythema or exudates. NECK: No masses, no JVD. CHEST: No chest wall deformity. LUNGS: Equal air entry with expiratory wheezes heard bilaterally throughout. On 2 L/min nasal cannula. No conversational dyspnea or accessory muscle use.. CVS: S1 and S2 normal with no audible murmur, regular rhythm. No extra heart sounds ABDOMEN: No hepatosplenomegaly, active bowel sounds, no guarding or rigidity. SPINE: No scoliosis or deformity SKIN: No rashes CENTRAL NERVOUS SYSTEM: No focal deficits, tone is normal in all 4 extremities. EXTREMITIES: There is no peripheral edema, clubbing, or cyanosis. Peripheral pulses are intact. Results - Laboratory Findings CBC and BMP: 12/04/24 16:52 12/04/24 16:52 PT/INR, D-dimer PT 10.8 sec (10.0-12.5) 12/04/24 16:52 INR 1.0 (<1.2) 12/04/24 16:52 Abnormal lab findings: Abnormal Labs 12/04/24 12/04/24 16:52 16:52 RBC 4.25 L Hct 38.3 L Lymphocytes # 0.57 L Eosinophils # 0.00 L Chloride 109 H Carbon Dioxide 21 L BUN 45 H Creatinine 1.38 H Glucose 119 H Magnesium 2.4 H - Diagnostic Findings Chest x-ray: image reviewed Assessment and Plan Assessment: Acute COPD exacerbation Acute hypoxemic respiratory failure, on 2 L/min nasal cannula, secondary to abov e History of lung cancer, PET scan available from June 2024 showing left upper lobe peripheral pulmonary nodule measuring 21 x 11 mm with an SUV value of 15.4 as well as left paratracheal lymph node measuring 9 mm with SUV value of 16.4. Reportedly, diagnosed at [facility]. Currently on Libtayo. He is following with an oncologist out of [facility], Dr. Layo Paredes . Former tobacco smoker, with over 60 pack years Acute kidney injury, creatinine 1.38 Hypertension History of hyperlipidemia Coronary artery disease, with recent history of stent to the RCA, August, History of prostate cancer with previous prostatectomy Plan: Continue supplemental oxygen, to maintain action saturation 92% or greater Chest x-ray reviewed, no acute cardiopulmonary process noted COPD is an exacerbation Continue DuoNebs [id number] Add budesonide and formoterol inhalations Add IV Solu-Medrol Add empiric azithromycin We will continue to follow I have personally seen and examined the patient, performed the documentation and the assessment and plan as written. Number of minutes spent on the visit:20 This dictation was produced using [employer] dictation software please excuse grammatical errors Time with Patient: Greater than 30
[2024-12-05 02:12] LABS: Basophils # (A) 0.01 10*3/uL (0.00-0.10); Basophils % (A) 0.1 %; Eosinophils # (A) 0.00 10*3/uL (0.04-0.35); Eosinophils % (A) 0.0 %; HCT 37.7 % (39.6-50.0); HGB 12.6 g/dL (13.0-17.0); Lymphocytes # (A) 0.56 10*3/uL (0.90-5.00); Lymphocytes % (A) 8.3 %; MCH 29.8 pg (27.0-32.0); MCHC 33.4 g/dL (32.0-37.0); MCV 89.1 fL (80.0-97.0); Monocytes # (A) 0.21 10*3/uL (0.20-1.00); Monocytes % (A) 3.1 %; Neutrophils # (A) 5.97 10*3/uL (1.80-7.70); Neutrophils % (A) 88.2 %; Platelet Count 206 10*3/uL (140-440); RBC 4.23 10*6/uL (4.40-5.60); RDW 13.5 % (11.5-14.5); WBC 6.77 10*3/uL (4.50-10.00)
[2024-12-05 02:43] LABS: ALT 52 U/L (4-49); AST 50 U/L (17-59); African American GFR (CKD) 68 (>60 ml/min/1.73 sqM); Albumin 4.0 g/dL (3.5-5.0); Alkaline Phosphatase 98 U/L (38-126); Anion Gap 10 mmol/L; Blood Urea Nitrogen 42 mg/dL (9-20); Calcium 9.8 mg/dL (8.4-10.2); Carbon Dioxide 23 mmol/L (22-30); Chloride 106 mmol/L (98-107); Glucose 138 mg/dL (74-99); Non-African American GFR(CKD) 59 (>60 ml/min/1.73 sqM); Potassium 5.2 mmol/L (3.5-5.1); Sodium 139 mmol/L (137-145); Total Protein 6.3 g/dL (6.3-8.2)
[2024-12-05] MEDS: AZITHROMYCIN 500 MG TAB PO SCH (02:58)
[2024-12-05] MEDS: methylPREDNISolone SOD SUCCI 125 MG/2 ML VIAL IV SCH (05:06)
[2024-12-05] MEDS ORDERED: BUDESONIDE 0.5 MG/2 ML NEBU INHALATION SCH (08:00)
[2024-12-05] MEDS: FORMOTEROL FUMARATE 20 MCG/2 ML NEBU INHALATION SCH (08:13)
[2024-12-05] MEDS: BUDESONIDE 1 MG/2 ML NEBU INHALATION SCH (08:13)
[2024-12-05] MEDS: ALBUTEROL NEBULIZED 2.5 MG/3 ML INHALATION PRN (08:13)
[2024-12-05] MEDS ORDERED: NON FORMULARY DRUG (Omega-3/Dha/Epa/Fish Oil [Omega-3 Fish Oil 1,000 Mg Sfgl] 1 EACH Capsu PO SCH (09:00)
[2024-12-05] MEDS: amLODIPine 5 MG TAB PO SCH (10:09)
[2024-12-05] MEDS: CHOLECALCIFEROL 25 MCG (1000 IU) TABLET PO SCH (10:09)
[2024-12-05] MEDS: LOSARTAN 50 MG TAB PO SCH (10:09)
[2024-12-05] MEDS: CLOPIDOGREL 75 MG TAB PO SCH (10:09)
[2024-12-05] MEDS: VARENICLINE 1 MG TAB PO SCH (10:09)
[2024-12-05] MEDS: ASPIRIN 81 MG PO SCH (10:09)
[2024-12-05] MEDS: ASCORBIC ACID 500 MG TAB PO SCH (10:09)
[2024-12-05] MEDS: ATORVASTATIN 40 MG TAB PO SCH (10:09)
[2024-12-05] MEDS: buPROPion XL 150 MG TAB.ER.24H PO SCH (10:09)
--- NOTE | 2024-12-05 12:08 | P.HPIM ---
History of Present Illness H&P Date: 12/05/24 Fam Fang is a 79-year-old male patient who presented with complaints of increased shortness of breath patient has a recent diagnosis of lung cancer and received 2 rounds of chemotherapy patient follows at [facility] with oncologist but per patient's at bedside requesting to change oncologist. Additional medical history includes longtime tobacco use 60 pack history, COPD, hyperlipidemia, hypertension, renal disease and prostate cancer.Chest x-ray completed in ER showing no acute cardiopulmonary disease or process COPD changes. Lab work completed showing white blood cell 6.77, hemoglobin 12.6, D- dimer 0.40, creatinine 1.17, bun 42. Influenza RSV and COVID-19 negative. At this time patient will be admitted pulmonary services have been consulted patient started on IV Solu-Medrol, Zithromax and DuoNeb breathing treatments. Will consult oncology services. Patient feels significantly improved. Patient denies chest pain or shortness of breath. Patient denies nausea vomiting or diarrhea. 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 only has one kidney since . History of Any Multi-Drug Resistant Organisms: None Reported Past Surgical History: Heart Catheterization, Tonsillectomy Additional Past Surgical History / Comment(s): prostate removed. left middle and ring finger amputated up to first knuckle. BRONCHOSCOPY, COLONOSCOPY Past Anesthesia/Blood Transfusion Reactions: No Reported Reaction Past Psychological History: No Psychological Hx Reported Smoking Status: Current some day smoker Past Alcohol Use History: None Reported Past Drug Use History: None Reported - Past Family History Father Family Medical History: Cancer, Coronary Artery Disease (CAD) Mother Family Medical History: Cancer Medications and Allergies Home Medications Medication Instructions Recorded Confirmed Type Losartan Potassium 100 mg PO DAILY 08/14/24 12/04/24 History Rosuvastatin [Crestor] 20 mg PO DAILY 08/14/24 12/04/24 History amLODIPine [Norvasc] 5 mg PO DAILY 08/14/24 12/04/24 History Albuterol Sulfate [Albuterol 2 puff INHALATION RT-Q4H PRN 08/28/24 12/04/24 History Sulfate Hfa] Aspirin [[place] Aspirin EC] 81 mg PO DAILY #30 tab 08/30/24 12/04/24 Rx Varenicline [Chantix Continuing 1 mg PO DAILY 08/30/24 12/04/24 History Pack] Clopidogrel [Plavix] 75 mg PO DAILY 09/10/24 12/04/24 History Ascorbic Acid [Vitamin C] 1,000 mg PO DAILY 12/04/24 12/04/24 History Baclofen [Lioresal] 10 mg PO HS 12/04/24 12/04/24 History Budesonide [Pulmicort] 0.5 mg INHALATION RT-BID 12/04/24 12/04/24 History Cholecalciferol [Vitamin D3 (25 25 mcg PO DAILY 12/04/24 12/04/24 History Mcg = 1000 Iu)] Ipratropium-Albuterol Nebulize 3 ml INHALATION RT-QID 12/04/24 12/04/24 History [Duoneb 0.5 mg-3 mg/3 ml Soln] [place]-3/Dha/Epa/Fish Oil [[place]-3 1 cap PO DAILY 12/04/24 12/04/24 History Fish Oil 1,000 mg Sfgl] buPROPion XL [Wellbutrin XL] 150 mg PO DAILY 12/04/24 12/04/24 History guaiFENesin [Mucinex] 1,200 mg PO BID 12/04/24 12/04/24 History methylPREDNISolone Dose Pack See Taper PO DIRECTED 12/04/24 12/04/24 History [Medrol Dose Pack] Allergies Allergy/AdvReac Type Severity Reaction Status Date / Time No Known Allergies Allergy Verified 12/04/24 18:48 Physical Exam Vitals: Vital Signs Temp Pulse Pulse Resp BP BP Pulse Ox 12/05/24 10:06 84 162/76 12/05/24 08:32 85 12/05/24 08:24 85 12/05/24 08:18 97 12/05/24 08:14 86 12/05/24 08:00 97.8 F 87 20 169/70 96 12/05/24 03:18 82 16 149/67 94 L 12/05/24 01:18 85 20 12/05/24 01:12 85 22 12/04/24 21:48 85 21 101/71 95 12/04/24 18:10 86 07/09/25 17:58 84 12/04/24 16:35 80 18 150/73 97 12/04/24 16:18 98.1 F 83 22 132/67 95 Intake and Output 12/04/24 12/05/24 12/05/24 22:59 06:59 14:59 Other: # Voids 2 Weight 89.358 kg Head normocephalic Neck supple Lungs clear to auscultation bilaterally no wheezing or crackles Heart regular rate and rhythm S1-S2, no rub or gallop Abdomen is soft nontender nondistended positive bowel sounds no he patosplenomegaly Extremities no edema Neuro alert and orientated x 3 Results CBC & Chem 7: 12/05/24 02:07 12/05/24 02:07 Labs: Abnormal Lab Results - Last 24 Hours (Table) 12/04/24 12/04/24 12/05/24 Range/Units 16:52 16:52 02:07 RBC 4.25 L 4.23 L (4.40-5.60) 10*6/uL Hgb 12.6 L (13.0-17.0) g/dL Hct 38.3 L 37.7 L (39.6-50.0) % Lymphocytes # 0.57 L 0.56 L (0.90-5.00) 10*3/uL Eosinophils # 0.00 L 0.00 L (0.04-0.35) 10*3/uL Potassium (3.5-5.1) mmol/L Chloride 109 H (98-107) mmol/L Carbon Dioxide 21 L (22-30) mmol/L BUN 45 H (9-20) mg/dL Creatinine 1.38 H (0.66-1.25) mg/dL Glucose 119 H (74-99) mg/dL Magnesium 2.4 H (1.6-2.3) mg/dL ALT (4-49) U/L 12/05/24 Range/Units 02:07 RBC (4.40-5.60) 10*6/uL Hgb (13.0-17.0) g/dL Hct (39.6-50.0) % Lymphocytes # (0.90-5.00) 10*3/uL Eosinophils # (0.04-0.35) 10*3/uL Potassium 5.2 H (3.5-5.1) mmol/L Chloride (98-107) mmol/L Carbon Dioxide (22-30) mmol/L BUN 42 H (9-20) mg/dL Creatinine (0.66-1.25) mg/dL Glucose 138 H (74-99) mg/dL Magnesium (1.6-2.3) mg/dL ALT 52 H (4-49) U/L Assessment and Plan Assessment: Acute COPD exacerbation History of lung cancer patient follows at [facility] History of nicotine use 60 pack history Acute kidney injury Coronary artery disease with recent stent in August 2024 History of prostate cancer History of essential hypertension History of hyperlipidemia DVT prophylaxis Lovenox. GI prophylaxis Protonix Pulmonary and oncology services consulted Repeat labs ordered in a.m. Patient maintained on IV Solu-Medrol, Zithromax and DuoNeb breathing treatments Repeat labs in a.m. Time with Patient: Greater than 30 (Greater than 60% of the total time spent in counseling and coordination of care)
[2024-12-05] MEDS ORDERED: RX INFO: IV CONTRAST WAS GIVEN 1 EACH MISC MISCELLANE PRN (12:56)
--- NOTE | 2024-12-05 15:13 | CT ---
CT chest with contrast HISTORY: Shortness of breath. COMPARISON: 07/10/2024. TECHNIQUE: Multiple axial images obtained through the thorax following IV contrast material FINDINGS: There are moderate emphysematous changes with an upper lobe predominance. The left upper lobe mass abutting the fissure has decreased in interval from 2.1 cm to 1.4 cm. There are multiple additional sub-5 mm nodules and micronodules which are stable. There is no airspace cons olidation There is no pleural effusion or pneumothorax. The great vessels chest are normal and there is no mediastinal, hilar or axillary adenopathy. Limited scanning through the upper abdomen reveals no gross abnormality. There are no focal osseous lesions. IMPRESSION: 1. Reduction in the left upper lobe mass from 2.1 cm to 1.4 cm. Multiple stable additional micronodul es and sub-5 mm nodules. 2. Moderate emphysematous changes. 3. No acute cardiopulmonary disease. [facility], , 12/05/2024 3:10 PM
--- NOTE | 2024-12-05 18:34 | P.CONS ---
History of Present Illness - Reason for Consult Consult date: 12/05/24 Metastatic NSCLC Requesting physician: Wood Mccrary - Chief Complaint SOB - History of Present Illness Mr. Fang is a pleasant 79 yo male pt of Med Onc Dr. Paredes who is s/p 2nd cycle of IO cemiplimab for metastatic NSCLC, last received on November 15. Pt came to hospital with c/o F,N,V, cough with green phelgm. We have requested records for his diagnosis history. Pt reports that he is wanting 2nd opinion locally. His PMH is significant for COPD, quit smoking 01/2024. He has digits removed for cancer. PET scan 07/26/2024 reporting left upper lobe peripheral pulmonary nodule with FDG activity compatible with malignancy, metastatic disease to the mediastinum. Left upper lobe peripheral 21 x 11 mm pulmonary nodule, SUV 15.4. Left paratracheal/AP window lymph node measuring 9 mm SUV 16.4 Cardiac catheterization 09/10/2024, with stenting of the right RCA dual antiplatelet therapy treatment for 6 months. The progress note of that procedure reports that patient had recently underwent a biopsy revealing malignancy. Chest x-ray reporting no acute cardiopulmonary disease process. COPD changes. Has been evaluated by Pulmonary medicine.Vital signs are stable. Laboratory investigations mild anemia hemoglobin 12.6 mild lymphopenia. BUN 42 creatinine 1.17. Viral panels negative Review of Systems 10 point ROS is neg except as stated in HPI Past Medical History Past Medical History: Asthma, Cancer, COPD, Hyperlipidemia, Hypertension, Renal Disease Additional Past Medical History / Comment(s): varicose veins, hx prostate cancer, ring finger and middle finger left hand CA. only has one kidney since . new diagnosis of lung ca- recieiving immunotherapy History of Any Multi-Drug Resistant Organisms: None Reported Past Surgical History: Heart Catheterization, Tonsillectomy Additional Past Surgical History / Comment(s): prostate removed. left middle and ring finger amputated up to first knuckle. BRONCHOSCOPY, COLONOSCOPY, lung biopsy Past Anesthesia/Blood Transfusion Reactions: No Reported Reaction Past Psychological History: No Psychological Hx Reported Smoking Status: Former smoker Past Alcohol Use History: None Reported Additional Past Alcohol Use History / Comment(s): quit smoking jan 2024 Past Drug Use History: None Reported - Past Family History Father Family Medical History: Cancer, Coronary Artery Disease (CAD) Mother Family Medical History: Cancer Medications and Allergies Home Medications Medication Instructions Recorded Confirmed Type Losartan Potassium 100 mg PO DAILY 08/14/24 12/04/24 History Rosuvastatin [Crestor] 20 mg PO DAILY 08/14/24 12/04/24 History amLODIPine [Norvasc] 5 mg PO DAILY 08/14/24 12/04/24 History Albuterol Sulfate [Albuterol 2 puff INHALATION RT-Q4H PRN 08/28/24 12/04/24 History Sulfate Hfa] Aspirin [[place] Aspirin EC] 81 mg PO DAILY #30 tab 08/30/24 12/04/24 Rx Varenicline [Chantix Continuing 1 mg PO DAILY 08/30/24 12/04/24 History Pack] Clopidogrel [Plavix] 75 mg PO DAILY 09/10/24 12/04/24 History Ascorbic Acid [Vitamin C] 1,000 mg PO DAILY 12/04/24 12/04/24 History Baclofen [Lioresal] 10 mg PO HS 12/04/24 12/04/24 History Budesonide [Pulmicort] 0.5 mg INHALATION RT-BID 12/04/24 12/04/24 History Cholecalciferol [Vitamin D3 (25 25 mcg PO DAILY 12/04/24 12/04/24 History Mcg = 1000 Iu)] Ipratropium-Albuterol Nebulize 3 ml INHALATION RT-QID 12/04/24 12/04/24 History [Duoneb 0.5 mg-3 mg/3 ml Soln] [place]-3/Dha/Epa/Fish Oil [[place]-3 1 cap PO DAILY 12/04/24 12/04/24 History Fish Oil 1,000 mg Sfgl] buPROPion XL [Wellbutrin XL] 150 mg PO DAILY 12/04/24 12/04/24 History guaiFENesin [Mucinex] 1,200 mg PO BID 12/04/24 12/04/24 History methylPREDNISolone Dose Pack See Taper PO DIRECTED 12/04/24 12/04/24 History [Medrol Dose Pack] Allergies Allergy/AdvReac Type Severity Reaction Status Date / Time No Known Allergies Allergy Verified 12/04/24 18:48 Physical Exam Vitals: Vital Signs Temp Pulse Pulse Resp BP BP Pulse Ox 12/05/24 18:09 84 12/05/24 17:00 95 12/05/24 12:45 97.7 F 83 18 135/62 98 12/05/24 12:25 72 12/05/24 12:15 81 12/05/24 10:10 83 18 12/05/24 10:06 84 162/76 12/05/24 08:32 85 12/05/24 08:24 85 12/05/24 08:18 97 12/05/24 08:14 86 12/05/24 08:00 97.8 F 87 20 169/70 96 12/05/24 03:18 82 16 149/67 94 L 12/05/24 01:18 85 20 12/05/24 01:12 85 22 12/04/24 21:48 85 21 101/71 95 Intake and Output 12/05/24 12/05/24 12/05/24 06:59 14:59 22:59 Intake Total 1080 Balance 1080 Intake: Oral 1080 Other: Voiding Method Toilet # Voids 2 2 Weight 89.358 kg - Constitutional General appearance: average body habitus, cooperative, no acute distress - EENT Eyes: anicteric sclerae, EOMI ENT: hearing grossly normal, normal oropharynx - Neck Neck: no lymphadenopathy - Respiratory Respiratory: right: wheezing, bilateral: diminished - Cardiovascular Rhythm: regular Heart sounds: normal: S1, S2 Abnormal Heart Sounds: no systolic murmur, no diastolic murmur, no rub, no S3 Gallop, no S4 Gallop, no click, no other leg Peripheral Edema: bilateral: None - Gastrointestinal General gastrointestinal: no absent bowel sounds, no decreased bowel sounds, no distended, no hepatomegaly, no hyperactive bowel sounds, normal bowel sounds, no organomegaly, no rigid, no scaphoid, soft, no splenomegaly, no tenderness, no umbilical hernia, no ventral hernia - Integumentary Integumentary: normal - Neurologic Neurologic: CNII-XII intact - Musculoskeletal Musculoskeletal: strength equal bilaterally - Psychiatric Psychiatric: A&O x's 3, appropriate affect, intact judgment & insight Results CBC & Chem 7: 12/05/24 02:07 12/05/24 02:07 Labs: Abnormal Lab Results - Last 24 Hours (Table) 12/05/24 12/05/24 Range/Units 02:07 02:07 RBC 4.23 L (4.40-5.60) 10*6/uL Hgb 12.6 L (13.0-17.0) g/dL Hct 37.7 L (39.6-50.0) % Lymphocytes # 0.56 L (0.90-5.00) 10*3/uL Eosinophils # 0.00 L (0.04-0.35) 10*3/uL Potassium 5.2 H (3.5-5.1) mmol/L BUN 42 H (9-20) mg/dL Glucose 138 H (74-99) mg/dL ALT 52 H (4-49) U/L Comments: PET scan from June report reviewed Chest x-ray: report reviewed Assessment and Plan (1) COPD exacerbation Current Visit: Yes Status: Acute Priority: High Code(s): J44.1 - CHRONIC OBSTRUCTIVE PULMONARY DISEASE W (ACUTE) EXACERBATION SNOMED Code(s): 753412806 (2) Non-small cell lung cancer (NSCLC) Current Visit: Yes Status: Acute Priority: High Code(s): C34.90 - MALIGNANT NEOPLASM OF UNSP PART OF UNSP BRONCHUS OR LUNG SNOMED Code(s): 698728896 Plan: COPD exacerbation - Pulmonary has seen the patient - Respiratory medications and antibiotics prescribed -Defer management of the same to Pulmonary Non-small cell lung cancer - Information obtained from this EMR is as documented in HPI. Pending records from patient's medical oncologist. Patient has received 2 doses of cemiplimab. Overall he feels has tolerated the treatment well -He was referred for 2nd opinion to Dr. Awais Lima, who will see pt later today. Will update chart with recommendations Doctor attests: I performed a history and physical examination of this patient, developed impression and plan of care. Discussed with dictator. I agree with dictators note, documented as a scribe.
[2024-12-05] MEDS: BACLOFEN 10 MG TAB PO SCH (20:35)
[2024-12-06] MEDS: ENOXAPARIN 40 MG/0.4 ML SYRINGE SQ SCH (08:28)
[2024-12-06] MEDS: PANTOPRAZOLE 40 MG TABLET PO SCH (08:28)
[2024-12-06] MEDS: predniSONE 20 MG TAB PO SCH (08:52)
[2024-12-06 08:55] LABS: Basophils # (A) 0.04 X 10*3/uL (0.00-0.10); Basophils % (A) 0.4 %; Eosinophils # (A) 0.02 X 10*3/uL (0.04-0.35); Eosinophils % (A) 0.2 %; HCT 39.9 % (39.6-50.0); HGB 12.6 g/dL (13.0-17.0); Immature Grans, Automated 0.80 %; Lymphocytes # (A) 0.62 X 10*3/uL (0.90-5.00); Lymphocytes % (A) 6.8 %; MCH 28.1 pg (27.0-32.0); MCHC 31.6 g/dL (32.0-37.0); MCV 89.1 FL (80.0-97.0); Monocytes # (A) 0.80 X 10*3/uL (0.20-1.00); Monocytes % (A) 8.8 %; NRBC Per 100 WBC 0 X 10*3/uL (0.00-0.01); Neutrophils # (A) 7.57 X 10*3/uL (1.80-7.70); Neutrophils % (A) 83.0 %; Platelet Count 250 X 10*3/uL (140-440); RBC 4.48 X 10*6/uL (4.40-5.60); RDW 13.4 % (11.5-14.5); WBC 9.12 X 10*3/uL (4.50-10.00)
[2024-12-06 09:03] VITALS: BP 175/71; PULSE 96; RESP 20; TEMP 97.7
[2024-12-06 09:10] LABS: Glucose 126 mg/dL (70-110)
[2024-12-06 09:11] LABS: ALT 51 U/L (10-49); AST 33 U/L (14-35); Albumin 3.9 g/dL (3.8-4.9); Albumin/Globulin Ratio 1.95 Ratio (1.60-3.17); Alkaline Phosphatase 88 U/L (41-126); Anion Gap 10.50 mmol/L (4.00-12.00); BUN/Creat Ratio 29.42 Ratio (12.00-20.00); Blood Urea Nitrogen 35.3 mg/dL (9.0-27.0); Calcium 9.5 mg/dL (8.7-10.3); Carbon Dioxide 24.5 mmol/L (21.6-31.8); Chloride 104 mmol/L (96-109); Globulin 2.0 g/dL (1.6-3.3); Potassium 4.8 mmol/L (3.5-5.5); Sodium 139 mmol/L (135-145); Total Protein 5.9 g/dL (6.2-8.2)
--- NOTE | 2024-12-06 10:58 | P.DS ---
Providers Date of admission: 12/04/24 18:09 Expected date of discharge: 12/06/24 Attending physician: Wood Mccrary Consults: 12/04/24 18:20 Consult Physician Routine Consulting Provider: Sameer George Consult Reason/Comments: COPD exacerbation Do you want consulting provider notified?: Yes, Notify in am 12/05/24 11:55 Consult Physician Routine Consulting Provider: Ran Guardado Consult Reason/Comments: lung ca Do you want consulting provider notified?: Yes Primary care physician: Wood Mccrary Hospital Course: Discharge diagnosis Acute COPD exacerbation History of lung cancer patient follows at [facility] [place] History of nicotine use 60 pack history Acute kidney injury Coronary artery disease with recent stent in August 2024 History of prostate cancer History of essential hypertension History of hyperlipidemia Hospital Course Fam Fang is a 79-year-old male patient who presented with complaints of increased shortness of breath patient has a recent diagnosis of lung cancer and received 2 rounds of chemotherapy patient follows at [facility] with oncologist but per patient's at bedside requesting to change oncologist. Additional medical history includes longtime tobacco use 60 pack history, COPD, hyperlipidemia, hypertension, renal disease and prostate cancer.Chest x-ray completed in ER showing no acute cardiopulmonary disease or process COPD changes. Lab work completed showing white blood cell 6.77, hemoglobin 12.6, D- dimer 0.40, creatinine 1.17, bun 42. Influenza RSV and COVID-19 negative. At this time patient will be admitted pulmonary services have been consulted patient started on IV Solu-Medrol, Zithromax and DuoNeb breathing treatments. Will consult oncology services. Patient feels significantly improved. Patient denies chest pain or shortness of breath. Patient denies nausea vomiting or diarrhea. Patient denies any urinary burning or frequency On 12/06/2024 patient is alert and oriented x 3... Patient is eager to be DC'd home. Patient has been cleared per pulmonary. Patient be DC'd on Zithromax and prednisone. Patient was evaluated by oncology services will follow-up outpatient for further management. Patient denies chest pain or shortness of breath. Patient denies nausea vomiting or diarrhea. Patient denies any urinary burning or frequency Patient Condition at Discharge: Stable Plan - Discharge Summary Discharge Rx Participant: Yes New Discharge Prescriptions: New predniSONE 10 mg PO DIRECTED 12 Days #30 tab Azithromycin [Zithromax] 500 mg PO HS 5 Days #5 tab Continue Rosuvastatin [Crestor] 20 mg PO DAILY Albuterol Sulfate [Albuterol Sulfate Hfa] 2 puff INHALATION RT-Q4H PRN PRN Reason: Shortness Of Breath buPROPion XL [Wellbutrin XL] 150 mg PO DAILY guaiFENesin [Mucinex] 1,200 mg PO BID Baclofen [Lioresal] 10 mg PO HS amLODIPine [Norvasc] 5 mg PO DAILY Losartan Potassium 100 mg PO DAILY Varenicline [Chantix Continuing Pack] 1 mg PO DAILY Aspirin [[place] Aspirin EC] 81 mg PO DAILY #30 tab Clopidogrel [Plavix] 75 mg PO DAILY Cholecalciferol [Vitamin D3 (25 Mcg = 1000 Iu)] 25 mcg PO DAILY Ascorbic Acid [Vitamin C] 1,000 mg PO DAILY [place]-3/Dha/Epa/Fish Oil [[place]-3 Fish Oil 1,000 mg Sfgl] 1 cap PO DAILY Budesonide [Pulmicort] 0.5 mg INHALATION RT-BID Ipratropium-Albuterol Nebulize [Duoneb 0.5 mg-3 mg/3 ml Soln] 3 ml INHALATION RT-QID Discontinued methylPREDNISolone Dose Pack [Medrol Dose Pack] See Taper PO DIRECTED Discharge Medication List Losartan Potassium 100 mg PO DAILY 08/14/24 [History] Rosuvastatin [Crestor] 20 mg PO DAILY 08/14/24 [History] amLODIPine [Norvasc] 5 mg PO DAILY 08/14/24 [History] Albuterol Sulfate [Albuterol Sulfate Hfa] 2 puff INHALATION RT-Q4H PRN 08/28/24 [History] Aspirin [[place] Aspirin EC] 81 mg PO DAILY #30 tab 08/30/24 [Rx] Varenicline [Chantix Continuing Pack] 1 mg PO DAILY 08/30/24 [History] Clopidogrel [Plavix] 75 mg PO DAILY 09/10/24 [History] Ascorbic Acid [Vitamin C] 1,000 mg PO DAILY 12/04/24 [History] Baclofen [Lioresal] 10 mg PO HS 12/04/24 [History] Budesonide [Pulmicort] 0.5 mg INHALATION RT-BID 12/04/24 [History] Cholecalciferol [Vitamin D3 (25 Mcg = 1000 Iu)] 25 mcg PO DAILY 12/04/24 [History] Ipratropium-Albuterol Nebulize [Duoneb 0.5 mg-3 mg/3 ml Soln] 3 ml INHALATION RT-QID 12/04/24 [History] [place]-3/Dha/Epa/Fish Oil [[place]-3 Fish Oil 1,000 mg Sfgl] 1 cap PO DAILY 12/04/24 [History] buPROPion XL [Wellbutrin XL] 150 mg PO DAILY 12/04/24 [History] guaiFENesin [Mucinex] 1,200 mg PO BID 12/04/24 [History] Azithromycin [Zithromax] 500 mg PO HS 5 Days #5 tab 12/06/24 [Rx] predniSONE 10 mg PO DIRECTED 12 Days #30 tab 12/06/24 [Rx] Follow up Appointment(s)/Referral(s): Wood Mccrary MD [Primary Care Provider] - 1-2 days Brett Lima MD [STAFF PHYSICIAN] - 1 Week Discharge Disposition: HOME SELF-CARE
[2024-12-06] MEDS: IPRATROPIUM-ALBUTEROL 3 ML NEB INHALATION SCH (11:16)
[2024-12-06 11:18] VITALS: BMI 29.9
--- NOTE | 2024-12-06 12:33 | P.PN ---
Subjective Progress Note Date: 12/06/24 Patient is a 79-year-old male with past medical history significant for COPD. Longtime tobacco smoker over 60 pack years, quitting in January 2024. He was recently diagnosed with lung cancer. Has received 2 rounds of Libtayo. PET scan available from June 2024 showing left upper lobe peripheral pulmonary nodule measuring 21 x 11 mm with an SUV value of 15.4 as well as left paratracheal lymph node measuring 9 mm with SUV value of 16.4. He is following with an oncologist at [facility], Dr. Layo Paredes. He pulmonolgist was previously Dr. JERMAIN Palacios, but has new patient visit with Dr. Liriano later this month. His primary care provider is Dr. Mccrary. 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 Presents the emergency department yesterday afternoon complaining of increased work of breathing. Productive cough with green sputum. Increasingly fatigued. Low-grade fevers. Did see his primary care provider 2 days ago and was given steroids. Workup in the emergency department including a chest x-ray which does not show any acute cardiopulmonary process. Hyperinflation and COPD like changes. CBC unremarkable for leukocytosis. Hemoglobin 13. Platelets 210. CMP: Sodium 141, potassium 4.9, chloride 109, serum bicarb 21, BUN 45, creatinine 1.38, glucose 119. Lactic 1.1. Magnesium 2.4. LFTs unremarkable. Troponin less than 0.012. NT proBNP 396. Viral 4 Plex negative for influenza A/B, RSV, COVID. Patient is currently being seen in the emergency department, he is on 2 L of supp lemental oxygen. He states he does not wear oxygen on a routine basis. He is not in any respiratory distress. Congested cough. Denies sick contacts. Denies any rhinorrhea, sore throat, sinus congestion. Denies any hemoptysis. Denies any chest pain. Denies any heart palpitations, syncope or any syncopal events. No lower extremity edema. Reduced appetite and 1 episode of vomiting while in the emergency department waiting room. No diarrhea. No abdominal pain. Currently afebrile. Previously, loaded with IV Solu-Medrol and given DuoNeb treatment in the emergency department. The patient is seen today December 06, 2024 in follow-up on the regular medical floor. He is currently resting in bed. Awake and alert in no acute distress. Denies any worsening shortness of breath, cough or congestion. He is maintaining good O2 saturations in the 90s on room air oxygen. He is continued on DuoNeb inhalations, Pulmicort and Perforomist inhalations, IV Solu-Medrol. Currently on azithromycin. White count 9.1. Hemoglobin 12.6. Platelets 250. Sodium 139. Potassium 4.8. Bicarb 25. BUN 35. Creatinine 1.2. Glucose 126. Procalcitonin was negative at 0.13. Objective - Vital Signs Vital signs: Vital Signs Temp 97.7 F 12/06/24 08:00 Pulse 96 12/06/24 08:00 Resp 20 12/06/24 08:00 BP 175/71 12/06/24 08:00 Pulse Ox 96 12/06/24 08:00 FiO2 Intake & Output 12/05/24 12/06/24 12/06/24 18:59 06:59 18:59 Intake Total 1080 Balance 1080 Weight 89.358 kg 89.358 kg Intake: Oral 1080 Other: Voiding Method Toilet Toilet Toilet # Voids 2 2 - Exam GENERAL EXAM: Alert, active, pleasant 79-year-old male, on room air oxygen, comfortable in no apparent distress. HEAD: Normocephalic. EYES: Normal reaction of pupils, equal size. NOSE: Clear with pink turbinates. THROAT: No erythema or exudates. NECK: No masses, no JVD. CHEST: No chest wall deformity. LUNGS: Equal air entry with few scattered rhonchi. CVS: S1 and S2 normal with no audible murmur, regular rhythm. ABDOMEN: No hepatosplenomegaly, normal bowel sounds, no guarding or rigidity. SPINE: No scoliosis or deformity SKIN: No rashes CENTRAL NERVOUS SYSTEM: No focal deficits, tone is normal in all 4 extremities. EXTREMITIES: There is no peripheral edema. No clubbing, no cyanosis. Peripheral pulses are intact. - Labs CBC & Chem 7: 12/06/24 06:05 12/06/24 06:05 Labs: Abnormal Lab Results - Last 24 Hours (Table) 12/06/24 12/06/24 Range/Units 06:05 06:05 Hgb 12.6 L (13.0-17.0) g/dL MCHC 31.6 L (32.0-37.0) g/dL Immature Gran # 0.07 H (0.00-0.04) X 10*3/uL Lymphocytes # 0.62 L (0.90-5.00) X 10*3/uL Eosinophils # 0.02 L (0.04-0.35) X 10*3/uL BUN 35.3 H (9.0-27.0) mg/dL BUN/Creatinine Ratio 29.42 H (12.00-20.00) Ratio Glucose 126 H (70-110) mg/dL ALT 51 H (10-49) U/L Total Protein 5.9 L (6.2-8.2) g/dL Assessment and Plan Assessment: Acute COPD exacerbation Acute hypoxemic respiratory failure, on 2 L/min nasal cannula, secondary to above. Recovered and on room air oxygen History of lung cancer, PET scan available from June 2024 showing left upper lobe peripheral pulmonary nodule measuring 21 x 11 mm with an SUV value of 15.4 as well as left paratracheal lymph node measuring 9 mm with SUV value of 16.4. Reportedly, diagnosed at [facility]. Currently on Libtayo. He is following with an oncologist out of [facility], Dr. Layo Paredes . Former tobacco smoker, with over 60 pack years Acute kidney injury, creatinine 1.38 Hypertension History of hyperlipidemia Coronary artery disease, with recent history of stent to the RCA, August, History of prostate cancer with previous prostatectomy Plan: The patient was seen and evaluated Labs and medications reviewed Stable and on room air oxygen Cleared for discharge Recommend Symbicort Recommend albuterol HFA Complete a prednisone taper Keep his appointment in our office 12/23/2024 This patient was seen independently by the pulmonary nurse practitioner addressing pulmonary issues I have personally seen and examined the patient, performed the documentation and the assessment and plan as written. Number of minutes spent on the visit: 24.
[2024-12-06] MEDS ORDERED: SYMBICORT 160-4.5 MCG INHALER INHALATION SCH (20:00)
== END 2024-12-06 11:31 | disposition home or self-care (01) ==
LOC: EC 15:40 → 5NMEDONC 18:09
PROVIDERS: ADMIT Internal Medicine; ATTEND Internal Medicine
DX: J44.1 Chronic obstructive pulmonary disease with (acute) exacerbation (principal); J96.01 Acute respiratory failure with hypoxia; C34.90 Malignant neoplasm of unspecified part of unspecified bronchus or lung; N17.9 Acute kidney failure, unspecified; I25.10 Atherosclerotic heart disease of native coronary artery without angina pectoris; I10 Essential (primary) hypertension; E78.5 Hyperlipidemia, unspecified; F17.200 Nicotine dependence, unspecified, uncomplicated; Z85.46 Personal history of malignant neoplasm of prostate; Z90.49 Acquired absence of other specified parts of digestive tract; Z79.899 Other long term (current) drug therapy; Z79.02 Long term (current) use of antithrombotics/antiplatelets; Z79.51 Long term (current) use of inhaled steroids; Z79.82 Long term (current) use of aspirin
CPT/HCPCS: 96376 ×4; 96372; 96374 ×2; 96375; 99285; 36415; 94640 ×3; 94760; 93005; 85379; 83880; 80053 ×3; 83605; 83735; 84484; 85025 ×3; 85610; 85730; 84145; 87636; 71046; 71260; G0378 ×3; J2405 ×3; J1650; J7512; Q9967; J2919 ×3